=== PATIENT | female | born 1945 | race Caucasian/White ===

== ENCOUNTER 2020-11-08 21:26 | Inpatient (IN) | payer MEDICARE, OTHER ==
[~2020-11-08] VITALS: Ht 165.1 cm; Wt 79.8 kg
[2020-11-08] MEDS ORDERED: AMLO-212 PO (21:51)
[2020-11-08] MEDS ORDERED: OLAN10TA3 PO (21:51)
[2020-11-08] MEDS ORDERED: SOTA80TA PO (21:51)
[2020-11-08] MEDS ORDERED: PANT40TA49 PO (21:51)
[2020-11-08] MEDS ORDERED: MAGN296S70 PO (21:51)
[2020-11-08] MEDS ORDERED: LACT1CAP69 PO (21:51)
[2020-11-08] MEDS ORDERED: ATOR10TA PO (21:51)
[2020-11-08] MEDS ORDERED: ASPI81TA31 PO (21:51)
[2020-11-08] MEDS ORDERED: LEVO88TA2 PO (21:51)
[2020-11-08] MEDS ORDERED: ACET-2154 PO (21:51)
[2020-11-08] MEDS ORDERED: NITR100C11 PO (21:51)
[2020-11-08] MEDS ORDERED: HYDR25TA4 PO (21:51)
[2020-11-08] MEDS ORDERED: OSPE60TA2 PO (21:51)
[2020-11-08] MEDS ORDERED: MIRA50TA PO (21:51)
[2020-11-08] MEDS ORDERED: OXCA300T15 PO ×2 (21:51)
[2020-11-08] MEDS ORDERED: LOSA100T31 PO (21:51)
[2020-11-08] MEDS ORDERED: BUPR-319 PO (21:51)
[2020-11-08] MEDS ORDERED: CALC-1210 PO (21:51)
[2020-11-08] MEDS ORDERED: LINA145C PO (21:51)
[2020-11-08] MEDS ORDERED: ALBU0.63 IH (21:51)
[2020-11-08] MEDS ORDERED: MULT1TAB22 PO (21:51)
[2020-11-08] MEDS ORDERED: HYDR-4077 PO (21:51)
[2020-11-08] MEDS ORDERED: ACYC400T19 PO (21:51)
[2020-11-08] MEDS ORDERED: cholecalciferol PO (21:51)
[2020-11-08] MEDS ORDERED: MELA3TAB41 PO (21:51)
[2020-11-08 22:25] LABS: BASOPHILS # (AUTO) 0.1 K/uL (0.0-8.0); EOSINOPHILS # (AUTO) 0.1 K/uL (0.0-0.7); EOSINOPHILS % (AUTO) 1.2 % (0.0-7.0); HEMATOCRIT 38.1 % (31.2-41.9); HEMOGLOBIN 13.1 g/dL (10.9-14.3); LYMPHOCYTES # (AUTO) 1.9 K/uL (20.0-40.0); LYMPHOCYTES % (AUTO) 17.6 % (20.5-51.5); MEAN CORPUSCULAR HEMOGLOBIN 31.8 uug (24.7-32.8); MEAN CORPUSCULAR HGB CONC 34 g/dL (32.3-35.6); MEAN CORPUSCULAR VOLUME 92.7 fL (75.5-95.3); MONOCYTES # (AUTO) 0.7 K/uL (2.0-10.0); MONOCYTES % (AUTO) 6.4 % (0.0-11.0); NEUTROPHILS # (AUTO) 7.8 K/uL (1.8-8.9); NEUTROPHILS % (AUTO) 73.8 % (38.5-71.5); PLATELET COUNT (AUTO) 265 K/uL (179-408); RED BLOOD CELL COUNT(AUTO) 4.11 MIL/uL (3.63-4.92); WHITE BLOOD COUNT (AUTO) 10.6 K/uL (3.8-11.8)
[2020-11-08 22:38] LABS: ALANINE AMINOTRANSFERASE 28 U/L (14-59); ALKALINE PHOSPHATASE 82 U/L (50-136); ASPARTATE AMINOTRANSFERASE 18 U/L (15-37); BILIRUBIN,DIRECT 0.1 mg/dL (0.0-0.2); BILIRUBIN,TOTAL 0.3 mg/dL (0.2-1.0); CARBON DIOXIDE 29 mmol/L (21-32); CHLORIDE 98 mmol/L (98-107); CREATINE KINASE, TOTAL 97 U/L (26-192); CREATININE 0.9 mg/dL (0.6-1.3); GLUCOSE 137 mg/dL (74-106); POTASSIUM 3.5 mmol/L (3.5-5.1); TOTAL PROTEIN, SERUM 6.4 g/dL (6.4-8.2); UREA NITROGEN, BLOOD 15 mg/dL (7-18)
[2020-11-08 22:39] LABS: ACETAMINOPHEN < 2.0 ug/mL (10-30)
[2020-11-08 22:41] LABS: ETHANOL < 3 MG/DL (0-0)
[2020-11-08 22:46] LABS: THYROID STIMULATING HORMONE 1.215 mIU/mL (0.358-3.740)
--- NOTE | 2020-11-08 22:57 | NUR ---
PATIENT WAS MEDICALLY CLEARED BY DR HARRIS.
[2020-11-09 00:30] VITALS: BP 155/67
--- NOTE | 2020-11-09 00:30 | NUR ---
AT APPROX 0005, ADMITTED PATIENT TO [facility] ON A 5150 HOLD FOR GD. FACE TO FACE ASSESSMENT WAS DONE PATIENT REFLEX WHAT IS WRITTEN ON THE HOLD. HIS ADVISEMENT WAS GIVEN WELL HER BOOKLET FOR PATIENT RIGHTS WHEN IN MENTAL HEALTH FACILITY. WILL CONTINUE WITH Q15 MIN CHECK
--- NOTE | 2020-11-09 00:30 | NUR ---
Received patient in the [facility] from the ED. Patient asleep but easily aroused by light stimuli. Patient placed on continued 5150 hold from transfer of facilities for danger to self, lacking ability to seek treatment on their own. Patient verbalized feelings of hopelessness and refusing to eat or drink. Unable to assess patients gait, refused to walk to the bathroom and in place would prefer a brief stating "I am incontinent". Q15 min safety checks in place, bed alarm on, and will continue to monitor for safety.
[2020-11-09] MEDS ORDERED: ACETAMINOPHEN 325 MG TABLET PO PRN (01:00)
[2020-11-09] MEDS ORDERED: MAG HYDROX/AL HYDROX/SIMETH 30 ML LIQUID UDC PO PRN (01:00)
[2020-11-09] MEDS ORDERED: TEMAZEPAM 7.5 MG CAPSULE PO PRN (01:00)
[2020-11-09 07:30] VITALS: BP 150/58
--- NOTE | 2020-11-09 11:51 | NUR ---
FAWN Initial Discharge Plan: Patient currently resides at home [address], [place] [address] ([phone]) lives with her Michael ([phone]). Patient would like to return home once stable for discharge. FAWN left a voicemail for Michael to discuss treatment and discharge plan. FAWN will continue to work with patient, family, and MD to ensure a safe and proper discharge plan.
--- NOTE | 2020-11-09 11:51 | NUR ---
FAWN Family Contact: FAWN left a voicemail for patient's Michael ([phone]) to discuss treatment and discharge plan. Waiting for a return call.
--- NOTE | 2020-11-09 11:53 | NUR ---
Firearms Report: Agricultural Researcher completed and submitted a [employer] firearms report for 5150 danger to self certifications. A copy of report has been placed in patient chart.
[2020-11-09] MEDS: hydrALAZINE HCL 50 MG TABLET PO SCH ×3 (12:33→20:15)
[2020-11-09] MEDS: OXCARBAZEPINE 150 MG TABLET PO SCH ×2 (12:34→16:15)
[2020-11-09] MEDS: LORAZEPAM 0.5 MG TABLET PO PRN (12:43)
[2020-11-09] MEDS: CALCIUM CARB/VITAMIN D 600-400 MG TABLET PO SCH (16:15)
[2020-11-09] MEDS: ACYCLOVIR 400 MG TABLET PO SCH (16:16)
[2020-11-09 16:27] VITALS: BP 142/61
--- NOTE | 2020-11-09 17:48 | NUR ---
patient stayed in her room all day, compliant with adls, tolerated meals, denied suicidal thoughts or ideations
[2020-11-09] MEDS: NITROFURANTOIN/NITROFURAN MAC 100 MG CAPSULE PO SCH (20:13)
[2020-11-09] MEDS: OLANZAPINE 5 MG TABLET PO SCH (20:17)
[2020-11-09] MEDS: SOTALOL HCL 80 MG TABLET PO SCH (20:17)
[2020-11-09] MEDS: ATORVASTATIN 10 MG TABLET PO SCH (20:18)
[2020-11-09] MEDS: AMLODIPINE 5 MG TABLET PO SCH (20:19)
[2020-11-09 20:26] VITALS: BP 153/72
[2020-11-09] MEDS ORDERED: Mirabegron (Myrbetriq) 50 MG) PO SCH (21:00)
[2020-11-09] MEDS ORDERED: OXCARBAZEPINE 150 MG TABLET PO SCH (21:00)
--- NOTE | 2020-11-09 21:48 | NUR ---
Received patient in the hallway, cooperative with care, interacts with staff and peers. Semi fair insight and fair judgment. Patient will remain in a psych facility for further evaluation and treatment.
[2020-11-10] MEDS: PANTOPRAZOLE SODIUM 40 MG TABLET.DR PO SCH (06:04)
[2020-11-10] MEDS: LEVOTHYROXINE SODIUM 88 MCG TABLET PO SCH (06:05)
[2020-11-10 07:30] VITALS: BP 156/65
[2020-11-10] MEDS ORDERED: LEVOTHYROXINE SODIUM 88 MCG TABLET PO SCH (07:30)
[2020-11-10] MEDS: LOSARTAN POTASSIUM 50 MG TABLET PO SCH (09:03)
[2020-11-10] MEDS: MULTIVITAMINS,THERAPEUTIC TABLET PO SCH (09:04)
[2020-11-10] MEDS: CHOLECALCIFEROL 1,000 UNIT TABLET PO SCH (09:04)
[2020-11-10] MEDS: OXCARBAZEPINE 150 MG TABLET PO SCH ×3 (09:04→20:36)
[2020-11-10] MEDS: NITROFURANTOIN/NITROFURAN MAC 100 MG CAPSULE PO SCH ×2 (09:04→20:32)
[2020-11-10] MEDS: SOTALOL HCL 80 MG TABLET PO SCH ×2 (09:05→20:31)
[2020-11-10] MEDS: ASPIRIN 81 MG TAB.CHEW PO SCH (09:05)
[2020-11-10] MEDS: CALCIUM CARB/VITAMIN D 600-400 MG TABLET PO SCH ×2 (09:06→17:25)
[2020-11-10] MEDS: HYDROCHLOROTHIAZIDE 25 MG TABLET PO SCH (09:06)
[2020-11-10] MEDS: ACYCLOVIR 400 MG TABLET PO SCH ×2 (09:06→17:26)
[2020-11-10] MEDS: hydrALAZINE HCL 50 MG TABLET PO SCH ×4 (09:07→20:29)
--- NOTE | 2020-11-10 09:20 | NUR ---
FAWN Family Contact: SW left a voicemail for patient's son, Eliud ([phone]) to discuss treatment and discharge plan. Waiting for a return call.
--- NOTE | 2020-11-10 09:22 | NUR ---
FAWN Family Contact: FAWN called patient's Michael ([phone]) to discuss treatment and discharge plan unable to reach two times.
--- NOTE | 2020-11-10 09:59 | NUR ---
FAWN Family Contact: FAWN spoke with patient's Michael ([phone]) and discussed treatment and discharge plan. Michael stated he will black pickler the patient at discharge.
--- NOTE | 2020-11-10 10:35 | NUR ---
FAWN Family Contact: FAWN spoke with patient's son, Eliud ([phone]) and discussed treatment and discharge plan.
[2020-11-10 16:00] VITALS: BP 150/64
[2020-11-10 20:22] VITALS: BP 148/76
[2020-11-10] MEDS: ATORVASTATIN 10 MG TABLET PO SCH (20:32)
[2020-11-10] MEDS: AMLODIPINE 5 MG TABLET PO SCH (20:33)
[2020-11-10] MEDS: OLANZAPINE 5 MG TABLET PO SCH (20:36)
[2020-11-10] MEDS: OXYBUTYNIN XL 5 MG TABSR PO SCH (20:37)
--- NOTE | 2020-11-10 21:49 | NUR ---
RECEIVED PATIENT IN THE HALLWAY.CALM AND COMPLIANT WITH HER MEDICATIONS. HOWEVER APPEARS DEPRESSED WITH FLAT AFFECT BUT DENIES SUICIDAL IDEATION. SHE ADMITTED TO FEELING DEPRESSED AND NOT WANTING TO EAT BUT COULD NOT SAY WHAT BROUGHT THAT ON. SHE CONTRACTED FOR SAFETY.LIBERAL FLUIDS ENCOURAGED FOR UTI.VISUAL CHECKS MADE ON HER FOR SAFETY. WILL CONTINUE TO MONITOR.
[2020-11-11] MEDS: LEVOTHYROXINE SODIUM 88 MCG TABLET PO SCH (06:35)
[2020-11-11] MEDS: PANTOPRAZOLE SODIUM 40 MG TABLET.DR PO SCH (06:35)
--- NOTE | 2020-11-11 06:55 | NUR ---
SLEPT FOR 8HOURS. REPOSITIONED NEEDED AND COMFORTABLE IN BED.
[2020-11-11 07:30] VITALS: BP 141/60
[2020-11-11] MEDS: OXCARBAZEPINE 150 MG TABLET PO SCH ×3 (08:10→20:03)
[2020-11-11] MEDS: CHOLECALCIFEROL 1,000 UNIT TABLET PO SCH (08:10)
[2020-11-11] MEDS: CALCIUM CARB/VITAMIN D 600-400 MG TABLET PO SCH ×2 (08:11→16:53)
[2020-11-11] MEDS: SOTALOL HCL 80 MG TABLET PO SCH ×2 (08:11→20:02)
[2020-11-11] MEDS: NITROFURANTOIN/NITROFURAN MAC 100 MG CAPSULE PO SCH ×2 (08:12→20:04)
[2020-11-11] MEDS: HYDROCHLOROTHIAZIDE 25 MG TABLET PO SCH (08:12)
[2020-11-11] MEDS: LOSARTAN POTASSIUM 50 MG TABLET PO SCH (08:12)
[2020-11-11] MEDS: hydrALAZINE HCL 50 MG TABLET PO SCH ×4 (08:12→20:03)
[2020-11-11] MEDS: ASPIRIN 81 MG TAB.CHEW PO SCH (08:12)
[2020-11-11] MEDS: ACYCLOVIR 400 MG TABLET PO SCH (08:14)
[2020-11-11] MEDS: MULTIVITAMINS,THERAPEUTIC TABLET PO SCH (08:15)
--- NOTE | 2020-11-11 10:41 | NUR ---
FAWN Individual Intervention: SW met with patient for brief individual counseling to address patient's presenting problem of neglecting self-care. Patient presents with a flat affect. Patient presents withdrawn and guarded. Patient is not engaging in a meaningful conversation. SW encouraged patient to express her needs or concerns, however patient blankly stared at this database report writer. Patient however has been engaging in self-care such as eating, drinking and bathing. SW will continue to remain available for the patient for ongoing continuous support.
[2020-11-11 16:42] VITALS: BP 151/69
[2020-11-11] MEDS: ACYCLOVIR 200 MG CAPSULE PO SCH (16:52)
[2020-11-11] MEDS: OXYBUTYNIN XL 5 MG TABSR PO SCH (20:04)
[2020-11-11] MEDS: ATORVASTATIN 10 MG TABLET PO SCH (20:04)
[2020-11-11] MEDS: AMLODIPINE 5 MG TABLET PO SCH (20:04)
[2020-11-11 20:07] VITALS: BP 142/73
[2020-11-11] MEDS ORDERED: OLANZAPINE 5 MG TABLET PO SCH (21:00)
--- NOTE | 2020-11-12 05:06 | NUR ---
Pt asleep with no s/sx of distress; no c/o pain. Safety precautions in place. Frequent rounds done during the shift.
[2020-11-12] MEDS: LEVOTHYROXINE SODIUM 88 MCG TABLET PO SCH (06:12)
[2020-11-12] MEDS: PANTOPRAZOLE SODIUM 40 MG TABLET.DR PO SCH (06:12)
--- NOTE | 2020-11-12 06:12 | NUR ---
Refused 6AM meds despite encouragement
[2020-11-12 07:30] VITALS: BP 149/60
[2020-11-12] MEDS: OXCARBAZEPINE 150 MG TABLET PO SCH ×4 (08:00→20:19)
[2020-11-12] MEDS: ACYCLOVIR 200 MG CAPSULE PO SCH ×2 (08:39→09:00)
[2020-11-12] MEDS: ASPIRIN 81 MG TAB.CHEW PO SCH ×2 (08:40→09:00)
[2020-11-12] MEDS: LOSARTAN POTASSIUM 50 MG TABLET PO SCH ×2 (08:40→09:00)
[2020-11-12] MEDS: hydrALAZINE HCL 50 MG TABLET PO SCH ×5 (08:41→20:22)
[2020-11-12] MEDS: SOTALOL HCL 80 MG TABLET PO SCH ×3 (08:41→20:20)
[2020-11-12] MEDS: MULTIVITAMINS,THERAPEUTIC TABLET PO SCH ×2 (08:41→09:00)
[2020-11-12 08:42] LABS: BASOPHILS # (AUTO) 0.1 K/uL (0.0-8.0); BASOPHILS % (AUTO) 0.8 % (0.0-2.0); EOSINOPHILS # (AUTO) 0.2 K/uL (0.0-0.7); EOSINOPHILS % (AUTO) 1.8 % (0.0-7.0); HEMATOCRIT 40.6 % (31.2-41.9); LYMPHOCYTES # (AUTO) 2.7 K/uL (20.0-40.0); MEAN CORPUSCULAR HEMOGLOBIN 32.1 uug (24.7-32.8); MEAN CORPUSCULAR HGB CONC 34 g/dL (32.3-35.6); MEAN CORPUSCULAR VOLUME 93.5 fL (75.5-95.3); MONOCYTES # (AUTO) 0.9 K/uL (2.0-10.0); MONOCYTES % (AUTO) 8.6 % (0.0-11.0); NEUTROPHILS % (AUTO) 63.8 % (38.5-71.5); PLATELET COUNT (AUTO) 336 K/uL (179-408); RED BLOOD CELL COUNT(AUTO) 4.35 MIL/uL (3.63-4.92)
[2020-11-12] MEDS: CHOLECALCIFEROL 1,000 UNIT TABLET PO SCH ×2 (08:42→09:00)
[2020-11-12] MEDS: CALCIUM CARB/VITAMIN D 600-400 MG TABLET PO SCH ×3 (08:42→17:40)
[2020-11-12] MEDS: HYDROCHLOROTHIAZIDE 25 MG TABLET PO SCH ×2 (08:44→09:00)
[2020-11-12 08:45] LABS: CREATININE 0.8 mg/dL (0.6-1.3); POTASSIUM 3.2 mmol/L (3.5-5.1)
[2020-11-12] MEDS ORDERED: POTASSIUM CHLORIDE 20 MEQ TAB.PRT.SR PO SCH (10:15)
--- NOTE | 2020-11-12 11:38 | NUR ---
Patient refuse 9am and 1pm medicines, despite of encouragement and education. MD Haskins aware. Patient no agitation noted. Patient took potassium one time for hypokalemia. will continue monitor
[2020-11-12 16:00] VITALS: BP 162/70
[2020-11-12 20:15] VITALS: BP 157/77
[2020-11-12] MEDS: ATORVASTATIN 10 MG TABLET PO SCH (20:18)
[2020-11-12] MEDS: AMLODIPINE 5 MG TABLET PO SCH (20:20)
[2020-11-12] MEDS: OXYBUTYNIN XL 5 MG TABSR PO SCH (20:21)
[2020-11-12] MEDS: OLANZAPINE 5 MG TABLET PO SCH (20:21)
[2020-11-12] MEDS: LORAZEPAM 0.5 MG TABLET PO PRN (20:29)
--- NOTE | 2020-11-13 06:00 | NUR ---
Received patient in the Kisha chair last night. Awake and pleasant, but confused. VS were stable. When mortgage loan underwriter asked patient if she will take her medication, patient stated that she is " Unable to swallow pills ". She was medication noncompliant with the day shift . Nursing Coordinator offered to crush the medication and at that point patient decided to take the pills whole with water, no swallowing difficulty noted. This patient was taken to her bed and was very weak when standing and took max assistance to get her in it. Due to her confusion, it was difficult to engage in meaningful conversation but patient did however deny SI. Continuing to monitor for safety , encourage compliance and to assist with ADLs as needed. Sleep hours were7.15
[2020-11-13] MEDS: LEVOTHYROXINE SODIUM 88 MCG TABLET PO SCH (06:12)
[2020-11-13] MEDS: PANTOPRAZOLE SODIUM 40 MG TABLET.DR PO SCH (06:12)
[2020-11-13 07:30] VITALS: BP 149/67
[2020-11-13] MEDS: ASPIRIN 81 MG TAB.CHEW PO SCH (08:56)
[2020-11-13] MEDS: OXCARBAZEPINE 150 MG TABLET PO SCH ×3 (08:56→20:01)
[2020-11-13] MEDS: LOSARTAN POTASSIUM 50 MG TABLET PO SCH (08:57)
[2020-11-13] MEDS: SOTALOL HCL 80 MG TABLET PO SCH ×2 (08:57→20:02)
[2020-11-13] MEDS: HYDROCHLOROTHIAZIDE 25 MG TABLET PO SCH (08:58)
[2020-11-13] MEDS: hydrALAZINE HCL 50 MG TABLET PO SCH ×4 (08:58→20:05)
[2020-11-13] MEDS: MULTIVITAMINS,THERAPEUTIC TABLET PO SCH (08:59)
[2020-11-13] MEDS: CALCIUM CARB/VITAMIN D 600-400 MG TABLET PO SCH ×2 (08:59→16:26)
[2020-11-13] MEDS: CHOLECALCIFEROL 1,000 UNIT TABLET PO SCH (08:59)
[2020-11-13] MEDS: MAGNESIUM HYDROXIDE 30 ML LIQUID UDC PO PRN (10:10)
[2020-11-13] MEDS ORDERED: MAGNESIUM CITRATE 296 ML BOTTLE PO ONE (12:45)
[2020-11-13 16:00] VITALS: BP 147/89
[2020-11-13 19:45] VITALS: BP 143/70
[2020-11-13] MEDS: OLANZAPINE 5 MG TABLET PO SCH (20:01)
[2020-11-13] MEDS: AMLODIPINE 5 MG TABLET PO SCH (20:02)
[2020-11-13] MEDS: ATORVASTATIN 10 MG TABLET PO SCH (20:03)
[2020-11-13] MEDS: OXYBUTYNIN XL 5 MG TABSR PO SCH (20:05)
[2020-11-14] MEDS: PANTOPRAZOLE SODIUM 40 MG TABLET.DR PO SCH (06:12)
[2020-11-14] MEDS: LEVOTHYROXINE SODIUM 88 MCG TABLET PO SCH (06:15)
--- NOTE | 2020-11-14 06:27 | NUR ---
GPS: Remain calm and cooperative. no acute distress noted. compliant with am po meds. assisted with adl's. good krista care provided. slept 7 hrs through the night. resting in bed comfortably.
[2020-11-14 07:30] VITALS: BP 140/55
[2020-11-14] MEDS: CALCIUM CARB/VITAMIN D 600-400 MG TABLET PO SCH ×2 (09:00→16:22)
[2020-11-14] MEDS: ASPIRIN 81 MG TAB.CHEW PO SCH (09:00)
[2020-11-14] MEDS: MULTIVITAMINS,THERAPEUTIC TABLET PO SCH (09:00)
[2020-11-14] MEDS: CHOLECALCIFEROL 1,000 UNIT TABLET PO SCH (09:00)
[2020-11-14] MEDS: SOTALOL HCL 80 MG TABLET PO SCH ×2 (09:01→21:01)
[2020-11-14] MEDS: OXCARBAZEPINE 150 MG TABLET PO SCH ×3 (09:01→21:00)
[2020-11-14] MEDS: HYDROCHLOROTHIAZIDE 25 MG TABLET PO SCH (09:01)
[2020-11-14] MEDS: hydrALAZINE HCL 50 MG TABLET PO SCH ×4 (09:02→21:02)
[2020-11-14] MEDS: LOSARTAN POTASSIUM 50 MG TABLET PO SCH (09:02)
--- NOTE | 2020-11-14 11:36 | NUR ---
FAWN SNF Referral: FAWN faxed patient's packet for review at [facility] ) ) attention to [facility] [employer] [facility]. Addendum: 11/14/20 at 1232 by ADELINA OSPINA Patient is accepted at Facility.
[2020-11-14 15:48] VITALS: BP 134/56
[2020-11-14 19:40] VITALS: BP 117/54
[2020-11-14] MEDS: DOCUSATE SODIUM 100 MG CAPSULE PO SCH (21:00)
[2020-11-14] MEDS: OLANZAPINE 5 MG TABLET PO SCH (21:01)
[2020-11-14] MEDS: ATORVASTATIN 10 MG TABLET PO SCH (21:01)
[2020-11-14] MEDS: AMLODIPINE 5 MG TABLET PO SCH (21:02)
[2020-11-14] MEDS: OXYBUTYNIN XL 5 MG TABSR PO SCH (21:04)
[2020-11-15] MEDS: PANTOPRAZOLE SODIUM 40 MG TABLET.DR PO SCH (06:02)
[2020-11-15] MEDS: LEVOTHYROXINE SODIUM 88 MCG TABLET PO SCH (06:03)
[2020-11-15 07:30] VITALS: BP 128/57
[2020-11-15] MEDS: CALCIUM CARB/VITAMIN D 600-400 MG TABLET PO SCH ×3 (09:00→17:29)
[2020-11-15] MEDS: CHOLECALCIFEROL 1,000 UNIT TABLET PO SCH (09:15)
[2020-11-15] MEDS: OXCARBAZEPINE 300 MG TABLET PO SCH ×3 (09:15→20:48)
[2020-11-15] MEDS: DOCUSATE SODIUM 100 MG CAPSULE PO SCH ×2 (09:15→20:44)
[2020-11-15] MEDS: ASPIRIN 81 MG TAB.CHEW PO SCH (09:15)
[2020-11-15] MEDS: hydrALAZINE HCL 50 MG TABLET PO SCH ×4 (09:16→20:46)
[2020-11-15] MEDS: MULTIVITAMINS,THERAPEUTIC TABLET PO SCH (09:16)
[2020-11-15] MEDS: SOTALOL HCL 80 MG TABLET PO SCH ×2 (09:16→20:45)
[2020-11-15] MEDS: LOSARTAN POTASSIUM 50 MG TABLET PO SCH (09:17)
[2020-11-15] MEDS: HYDROCHLOROTHIAZIDE 25 MG TABLET PO SCH (09:17)
[2020-11-15 15:27] VITALS: BP 135/63
[2020-11-15 20:09] VITALS: BP 132/58
[2020-11-15] MEDS: ATORVASTATIN 10 MG TABLET PO SCH (20:44)
[2020-11-15] MEDS: OLANZAPINE 5 MG TABLET PO SCH (20:44)
[2020-11-15] MEDS: AMLODIPINE 5 MG TABLET PO SCH (20:45)
[2020-11-15] MEDS: OXYBUTYNIN XL 5 MG TABSR PO SCH (20:48)
--- NOTE | 2020-11-16 05:57 | NUR ---
GPS: Pt.slept for 7.30 last night. Needs attended and anticipated. Denies wanting to hurt self. Re-assured prn. Safety checks done Q15 minutes as scheduled.
[2020-11-16] MEDS: PANTOPRAZOLE SODIUM 40 MG TABLET.DR PO SCH (06:13)
[2020-11-16] MEDS: LEVOTHYROXINE SODIUM 88 MCG TABLET PO SCH (06:13)
[2020-11-16 07:30] VITALS: BP 122/44
--- NOTE | 2020-11-16 07:30 | NUR ---
Received report from NASIMA Nguyen. All questions, comments, and concerns were addressed. Received patient asleep in her assigned bed. Bed is in low and locked position with bed alarm on.
[2020-11-16] MEDS: OXCARBAZEPINE 300 MG TABLET PO SCH ×3 (08:45→20:09)
[2020-11-16] MEDS: CHOLECALCIFEROL 1,000 UNIT TABLET PO SCH (08:45)
[2020-11-16] MEDS: ASPIRIN 81 MG TAB.CHEW PO SCH (08:45)
[2020-11-16] MEDS: MULTIVITAMINS,THERAPEUTIC TABLET PO SCH (08:46)
[2020-11-16] MEDS: DOCUSATE SODIUM 100 MG CAPSULE PO SCH ×2 (08:46→20:09)
[2020-11-16] MEDS: SOTALOL HCL 80 MG TABLET PO SCH ×2 (08:46→20:10)
[2020-11-16] MEDS: CALCIUM CARB/VITAMIN D 600-400 MG TABLET PO SCH ×2 (08:46→16:42)
[2020-11-16] MEDS: HYDROCHLOROTHIAZIDE 25 MG TABLET PO SCH (08:47)
[2020-11-16] MEDS: LOSARTAN POTASSIUM 50 MG TABLET PO SCH (08:47)
[2020-11-16] MEDS: hydrALAZINE HCL 50 MG TABLET PO SCH ×4 (08:47→20:11)
--- NOTE | 2020-11-16 13:19 | NUR ---
FAWN Family Contact: FAWN spoke with patient's Michael ([phone]) and discussed updated treatment and discharge plan. FAWN informed that the psychiatrist Dr. Haskins is recommending a SNF for the patient upon discharge, and patient has been accepted at [facility]. FAWN provided Michael with all the necessary information. Michael seemed somewhat dismissive of the patient's current status however he agreed to SNF placement.
[2020-11-16 16:00] VITALS: BP 137/62
--- NOTE | 2020-11-16 16:08 | NUR ---
patient is alert and oriented. she is anxious, but is cooperative and redirectable with this advertising copywriter. patient denies SI/HI, denies AH/VH. she is adherent with prescribed medication, no adverse reaction noted. patient requires full assistance with care.
[2020-11-16] MEDS: AMLODIPINE 5 MG TABLET PO SCH (20:09)
[2020-11-16] MEDS: ATORVASTATIN 10 MG TABLET PO SCH (20:09)
[2020-11-16] MEDS: MEMANTINE HCL 5 MG TABLET PO SCH (20:09)
[2020-11-16] MEDS: OLANZAPINE 5 MG TABLET PO SCH (20:09)
[2020-11-16] MEDS: OXYBUTYNIN XL 5 MG TABSR PO SCH (20:10)
--- NOTE | 2020-11-16 20:25 | NUR ---
Received patient from U, transferred to this unit as MHU overflow. Patient AAOx2-3. In no acute distress. Denies any pain or SOB. Denies any SI/HI. Needs assessed and attended to. Safety measure initiated. Continue to monitor.
--- NOTE | 2020-11-16 20:27 | NUR ---
GPS: Pt.was transferred to [facility]. Left in stable condition with all her belongings. Report given to Casandra Dimas All bedtime meds.given. VSS.
[2020-11-16 21:04] VITALS: BP 145/62
[2020-11-17 04:00] VITALS: BP 150/57
--- NOTE | 2020-11-17 06:13 | NUR ---
Patient slept a total of 6.5 hours last night.
[2020-11-17] MEDS: PANTOPRAZOLE SODIUM 40 MG TABLET.DR PO SCH (06:20)
[2020-11-17] MEDS: LEVOTHYROXINE SODIUM 88 MCG TABLET PO SCH (07:18)
[2020-11-17 07:30] VITALS: BP 137/53
[2020-11-17] MEDS: HYDROCHLOROTHIAZIDE 25 MG TABLET PO SCH (08:02)
[2020-11-17] MEDS: DOCUSATE SODIUM 100 MG CAPSULE PO SCH ×2 (08:02→20:38)
[2020-11-17] MEDS: CALCIUM CARB/VITAMIN D 600-400 MG TABLET PO SCH ×2 (08:02→16:40)
[2020-11-17] MEDS: ASPIRIN 81 MG TAB.CHEW PO SCH (08:02)
[2020-11-17] MEDS: MULTIVITAMINS,THERAPEUTIC TABLET PO SCH (08:03)
[2020-11-17] MEDS: LOSARTAN POTASSIUM 50 MG TABLET PO SCH (08:03)
[2020-11-17] MEDS: CHOLECALCIFEROL 1,000 UNIT TABLET PO SCH (08:03)
[2020-11-17] MEDS: MEMANTINE HCL 5 MG TABLET PO SCH ×2 (08:03→20:50)
[2020-11-17] MEDS: hydrALAZINE HCL 50 MG TABLET PO SCH ×4 (08:03→20:40)
[2020-11-17] MEDS: OXCARBAZEPINE 300 MG TABLET PO SCH ×3 (08:58→20:38)
[2020-11-17] MEDS: SOTALOL HCL 80 MG TABLET PO SCH ×2 (08:58→20:39)
--- NOTE | 2020-11-17 09:50 | NUR ---
pt went to u via wheelchair with the veda najera activity
[2020-11-17] MEDS: LORAZEPAM 0.5 MG TABLET PO PRN (11:15)
--- NOTE | 2020-11-17 11:15 | NUR ---
pt is anxious ativan 0.5 mg po given per md orders
--- NOTE | 2020-11-17 13:10 | NUR ---
FAWN PC Hearing: Patient had 5250 probable cause hearing today and it was upheld for grave disability.
[2020-11-17 16:00] VITALS: BP 144/65
[2020-11-17 20:00] VITALS: BP 144/60
[2020-11-17] MEDS: ATORVASTATIN 10 MG TABLET PO SCH (20:40)
[2020-11-17] MEDS: OLANZAPINE 5 MG TABLET PO SCH (20:40)
[2020-11-17] MEDS: OXYBUTYNIN XL 5 MG TABSR PO SCH (20:50)
[2020-11-17] MEDS: AMLODIPINE 5 MG TABLET PO SCH (20:51)
[2020-11-18] VITALS: BP 132/59
[2020-11-18 04:00] VITALS: BP 156/67
[2020-11-18] MEDS: PANTOPRAZOLE SODIUM 40 MG TABLET.DR PO SCH (06:14)
[2020-11-18] MEDS: LEVOTHYROXINE SODIUM 88 MCG TABLET PO SCH (06:14)
--- NOTE | 2020-11-18 07:00 | NUR ---
Received patient in the bed, cooperative with care, vs are stable sitter at bed side
[2020-11-18 08:00] VITALS: BP 133/65
[2020-11-18] MEDS: DOCUSATE SODIUM 100 MG CAPSULE PO SCH ×2 (08:02→20:39)
[2020-11-18] MEDS: CALCIUM CARB/VITAMIN D 600-400 MG TABLET PO SCH ×2 (08:02→18:07)
[2020-11-18] MEDS: MEMANTINE HCL 5 MG TABLET PO SCH ×2 (08:02→20:39)
[2020-11-18] MEDS: LOSARTAN POTASSIUM 50 MG TABLET PO SCH (08:02)
[2020-11-18] MEDS: ASPIRIN 81 MG TAB.CHEW PO SCH (08:02)
[2020-11-18] MEDS: HYDROCHLOROTHIAZIDE 25 MG TABLET PO SCH (08:03)
[2020-11-18] MEDS: SOTALOL HCL 80 MG TABLET PO SCH ×2 (08:03→20:38)
[2020-11-18] MEDS: CHOLECALCIFEROL 1,000 UNIT TABLET PO SCH (08:03)
[2020-11-18] MEDS: MULTIVITAMINS,THERAPEUTIC TABLET PO SCH (08:03)
[2020-11-18] MEDS: OXCARBAZEPINE 300 MG TABLET PO SCH ×3 (08:03→20:39)
[2020-11-18] MEDS: hydrALAZINE HCL 50 MG TABLET PO SCH ×4 (08:03→20:37)
--- NOTE | 2020-11-18 09:40 | NUR ---
FAWN Family Contact: FAWN called and left a voicemail for patients , Michael ([phone]) and informed of the discharge set today to [facility].
[2020-11-18 15:52] VITALS: BP 155/70
--- NOTE | 2020-11-18 15:59 | NUR ---
transfer the pt to u via wheel chair in stable condition
--- NOTE | 2020-11-18 16:07 | NUR ---
Gps/Helicopter Pilot- Received from 3rd floor via wheel chair, in no sign of any distress, cooperative, flat affect , answers to simple questions and command . In no sign of any distress, alert, oriented x 3 , denies any discomfort at this time. Oriented to unit settings. b/p 173/77-tempt. 98.1, HR 67, resp. 18, 98%
[2020-11-18 20:21] VITALS: BP 163/71
[2020-11-18] MEDS: OLANZAPINE 5 MG TABLET PO SCH (20:37)
[2020-11-18] MEDS: OXYBUTYNIN XL 5 MG TABSR PO SCH (20:38)
[2020-11-18] MEDS: ATORVASTATIN 10 MG TABLET PO SCH (20:39)
[2020-11-18] MEDS: AMLODIPINE 5 MG TABLET PO SCH (20:39)
--- NOTE | 2020-11-19 06:12 | NUR ---
Patient received AOx2 in hallway sitting in her wheelchair. Patient was pleasant but quiet with this information writer. Denies SI, HI, AH. or VH. Tolerated all given medications well. Slept a total of 7.30 hours last night. Safety precautions kept in place throughout the shift. No other issues or concerns at this time, will endorse to day shift.
[2020-11-19] MEDS: PANTOPRAZOLE SODIUM 40 MG TABLET.DR PO SCH (06:34)
[2020-11-19] MEDS: LEVOTHYROXINE SODIUM 88 MCG TABLET PO SCH (06:34)
[2020-11-19 06:44] LABS: BASOPHILS # (AUTO) 0.1 K/uL (0.0-8.0); BASOPHILS % (AUTO) 1.2 % (0.0-2.0); EOSINOPHILS # (AUTO) 0.3 K/uL (0.0-0.7); EOSINOPHILS % (AUTO) 2.8 % (0.0-7.0); HEMATOCRIT 36.2 % (31.2-41.9); HEMOGLOBIN 12.6 g/dL (10.9-14.3); LYMPHOCYTES % (AUTO) 29.2 % (20.5-51.5); MEAN CORPUSCULAR HEMOGLOBIN 31.9 uug (24.7-32.8); MEAN CORPUSCULAR HGB CONC 35 g/dL (32.3-35.6); MONOCYTES # (AUTO) 0.8 K/uL (2.0-10.0); MONOCYTES % (AUTO) 7.5 % (0.0-11.0); NEUTROPHILS # (AUTO) 6.1 K/uL (1.8-8.9); NEUTROPHILS % (AUTO) 59.3 % (38.5-71.5); PLATELET COUNT (AUTO) 335 K/uL (179-408); RED BLOOD CELL COUNT(AUTO) 3.94 MIL/uL (3.63-4.92); WHITE BLOOD COUNT (AUTO) 10.3 K/uL (3.8-11.8)
[2020-11-19 06:51] LABS: CREATININE 0.6 mg/dL (0.6-1.3); POTASSIUM 3.2 mmol/L (3.5-5.1)
[2020-11-19 07:30] VITALS: BP 147/79
--- NOTE | 2020-11-19 07:30 | NUR ---
received report from HOLLIS Reyes. All questions, comments, and concerns were addressed. Received patient awake, alert and oriented in her assigned room in bed. bed alarm on. bed in low and locked position.
[2020-11-19] MEDS ORDERED: POTASSIUM CHLORIDE 20 MEQ TAB.PRT.SR PO ONE (08:30)
[2020-11-19] MEDS: ASPIRIN 81 MG TAB.CHEW PO SCH (09:14)
[2020-11-19] MEDS: CALCIUM CARB/VITAMIN D 600-400 MG TABLET PO SCH ×2 (09:14→16:27)
[2020-11-19] MEDS: MULTIVITAMINS,THERAPEUTIC TABLET PO SCH (09:14)
[2020-11-19] MEDS: HYDROCHLOROTHIAZIDE 25 MG TABLET PO SCH (09:14)
[2020-11-19] MEDS: LOSARTAN POTASSIUM 50 MG TABLET PO SCH (09:15)
[2020-11-19] MEDS: DOCUSATE SODIUM 100 MG CAPSULE PO SCH ×2 (09:15→20:04)
[2020-11-19] MEDS: MEMANTINE HCL 5 MG TABLET PO SCH ×2 (09:15→20:07)
[2020-11-19] MEDS: SOTALOL HCL 80 MG TABLET PO SCH ×2 (09:15→20:06)
[2020-11-19] MEDS: CHOLECALCIFEROL 1,000 UNIT TABLET PO SCH (09:16)
[2020-11-19] MEDS: hydrALAZINE HCL 50 MG TABLET PO SCH ×4 (09:16→20:06)
[2020-11-19] MEDS: OXCARBAZEPINE 300 MG TABLET PO SCH ×3 (09:16→20:07)
[2020-11-19] MEDS ORDERED: IV NS 1000 ML 1,000 ML IV ONE (10:15)
[2020-11-19 15:37] VITALS: BP 143/57
--- NOTE | 2020-11-19 17:55 | NUR ---
patient is alert and oriented. she is withdrawn, guarded, and flat, but is cooperative and redirectable. patient denies SI/HI, denies AH/VH. patient is adherent with medication, no adverse reaction noted. patient requires assistance with ambulation and is unsteady. able to tolerate food and fluids. patient provided with education about impulse control and to communicate needs to staff appropriately. patient encouraged to participate in the unit therapeutic milieu.
--- NOTE | 2020-11-19 17:56 | NUR ---
peripheral IV site inserted in left antecubital area with no adverse event. site is patent, flushed with sterile NS. patient receiving IV fluids as ordered per CLINICAL LABORATORY TECHNICIAN. tolerating well.
[2020-11-19] MEDS: OLANZAPINE 5 MG TABLET PO SCH (20:05)
[2020-11-19] MEDS: OXYBUTYNIN XL 5 MG TABSR PO SCH (20:06)
[2020-11-19] MEDS: ATORVASTATIN 10 MG TABLET PO SCH (20:06)
[2020-11-19 20:30] VITALS: BP 136/52
[2020-11-19] MEDS: AMLODIPINE 5 MG TABLET PO SCH (20:34)
--- NOTE | 2020-11-20 05:48 | NUR ---
Received Pt sleeping in sammy chair, but easily arousable, A+Ox2. IV present to (L) AC infusing NS @ 125ml/hr. Pt c/o no BM "for several months, as long as I have been here". Pt was unable to state the date but knew the year. Pt was reminded she has been at this hospital 11 days. Pt given MOM for constipation, awaiting effect. Pt has poor insight and states she was admitted for "bowel obstruction." Presents with low mood and flat affect. Denies SI/HI/AH/VH and verbally contracts for safety. Denies pain, VS stable. IV infused 700ml NS, infusion complete. IV d/c'd hep lock in place. No redness or infiltration noted at site.
[2020-11-20] MEDS: PANTOPRAZOLE SODIUM 40 MG TABLET.DR PO SCH (06:08)
[2020-11-20] MEDS: LEVOTHYROXINE SODIUM 88 MCG TABLET PO SCH (06:08)
[2020-11-20 07:05] LABS: BASOPHILS # (AUTO) 0.1 K/uL (0.0-8.0); BASOPHILS % (AUTO) 1.1 % (0.0-2.0); EOSINOPHILS # (AUTO) 0.2 K/uL (0.0-0.7); HEMOGLOBIN 12.7 g/dL (10.9-14.3); LYMPHOCYTES # (AUTO) 2.6 K/uL (20.0-40.0); LYMPHOCYTES % (AUTO) 26.8 % (20.5-51.5); MEAN CORPUSCULAR HEMOGLOBIN 31.8 uug (24.7-32.8); MEAN CORPUSCULAR HGB CONC 34 g/dL (32.3-35.6); MONOCYTES # (AUTO) 0.9 K/uL (2.0-10.0); MONOCYTES % (AUTO) 9.2 % (0.0-11.0); NEUTROPHILS # (AUTO) 5.9 K/uL (1.8-8.9); NEUTROPHILS % (AUTO) 60.9 % (38.5-71.5); PLATELET COUNT (AUTO) 349 K/uL (179-408); RED BLOOD CELL COUNT(AUTO) 3.98 MIL/uL (3.63-4.92); WHITE BLOOD COUNT (AUTO) 9.7 K/uL (3.8-11.8)
[2020-11-20 07:12] LABS: CREATININE 0.7 mg/dL (0.6-1.3); MAGNESIUM 2.1 mg/dL (1.8-2.4); PHOSPHOROUS 2.6 mg/dL (2.5-4.9); POTASSIUM 3.9 mmol/L (3.5-5.1)
[2020-11-20 08:00] VITALS: BP 148/67
[2020-11-20] MEDS: CHOLECALCIFEROL 1,000 UNIT TABLET PO SCH (08:21)
[2020-11-20] MEDS: ASPIRIN 81 MG TAB.CHEW PO SCH (08:22)
[2020-11-20] MEDS: CALCIUM CARB/VITAMIN D 600-400 MG TABLET PO SCH ×2 (08:22→17:18)
[2020-11-20] MEDS: SOTALOL HCL 80 MG TABLET PO SCH ×2 (08:22→20:14)
[2020-11-20] MEDS: DOCUSATE SODIUM 100 MG CAPSULE PO SCH ×2 (08:23→20:17)
[2020-11-20] MEDS: MEMANTINE HCL 5 MG TABLET PO SCH ×2 (08:23→20:11)
[2020-11-20] MEDS: MULTIVITAMINS,THERAPEUTIC TABLET PO SCH (08:23)
[2020-11-20] MEDS: HYDROCHLOROTHIAZIDE 25 MG TABLET PO SCH (08:23)
[2020-11-20] MEDS: OXCARBAZEPINE 300 MG TABLET PO SCH ×3 (08:23→20:12)
[2020-11-20] MEDS: hydrALAZINE HCL 50 MG TABLET PO SCH ×4 (08:23→20:13)
[2020-11-20] MEDS: LOSARTAN POTASSIUM 50 MG TABLET PO SCH (08:25)
[2020-11-20 16:00] VITALS: BP 137/59
--- NOTE | 2020-11-20 18:16 | NUR ---
patient up to sammy-chair with assisted to all ADLS, compliant with all medication, iv site removed Na up to 132 .will continue close monitoring.
[2020-11-20 20:00] VITALS: BP 148/59
[2020-11-20] MEDS: MAGNESIUM HYDROXIDE 30 ML LIQUID UDC PO PRN (20:11)
[2020-11-20] MEDS: ATORVASTATIN 10 MG TABLET PO SCH (20:12)
[2020-11-20] MEDS: LORAZEPAM 0.5 MG TABLET PO PRN (20:12)
[2020-11-20] MEDS: AMLODIPINE 5 MG TABLET PO SCH (20:13)
[2020-11-20] MEDS: OLANZAPINE 5 MG TABLET PO SCH (20:13)
[2020-11-20] MEDS: OXYBUTYNIN XL 5 MG TABSR PO SCH (20:17)
--- NOTE | 2020-11-21 05:00 | NUR ---
Pt hep lock d/c'd from (L) AC. Pt appears depressed and sad. Pt reported she is depressed due to her multiple health problems, and she stated she had not had a BM "in 2 months." Pt was reminded she had had at least 3 BMs since admission, but she adamantly denies this. Abdomen was assessed, no rigidity present, and bowel sounds were present. MOM prn administered along with scheduled HS Colace. No BM up to this point in the shift. Pt is isolative and withdrawn, and encouraged to engage with the milieu, emotional support provided. Ativan 1mg administered at 2011 with good effect. ADLs attended to, no aggressive or combative behaviors. Denied pain, VS stable.
[2020-11-21] MEDS: PANTOPRAZOLE SODIUM 40 MG TABLET.DR PO SCH (06:13)
[2020-11-21] MEDS: LEVOTHYROXINE SODIUM 88 MCG TABLET PO SCH (06:14)
--- NOTE | 2020-11-21 06:49 | NUR ---
Shower given this morning, skin care provided, all ADLs attended to. Slept 9 hours.
[2020-11-21 07:30] VITALS: BP 139/60
--- NOTE | 2020-11-21 07:30 | NUR ---
Received report from HOLLIS Harrison. All questions, comments, and concerns. Received patient resting quietly, alert and oriented sitting in chair.
--- NOTE | 2020-11-21 08:33 | NUR ---
Discharge Note: Patient will be discharged to [facility], [facility] [address] [place] [address] ([phone]) via ambulance. Patient will be transported by ambulance at 12pm. Spoke with Dasha broadcast traffic coordinator at the facility who states they are ready to accept the patient today. Patient will follow-up at the facility with Dr. Patel Manager Talent Acquisition and Dr. Haskins Psychiatrist. Patient is alert and oriented times 3, denies suicidal or homicidal ideation, and is aware and agreeable with discharge plans. Patient presents with euthymic mood and congruent affect. Patient is unable to plan for self-care at this time, however, is willing to accept care provided at the facility. Patients , Michael ([phone]) is aware and agreeable with discharge plan.
--- NOTE | 2020-11-21 08:38 | NUR ---
FAWN Family Contact: FAWN called and left a voicemail for patients , Michael ([phone]) and informed of the discharge set today to [facility].
--- NOTE | 2020-11-21 08:59 | NUR ---
FAWN Family Contact: FAWN spoke with patients , Michael ([phone]) and informed of the discharge set today to [facility]. Michael is agreeable with discharge plan.
[2020-11-21] MEDS: CALCIUM CARB/VITAMIN D 600-400 MG TABLET PO SCH (09:38)
[2020-11-21] MEDS: CHOLECALCIFEROL 1,000 UNIT TABLET PO SCH (09:41)
[2020-11-21] MEDS: ASPIRIN 81 MG TAB.CHEW PO SCH (09:41)
[2020-11-21] MEDS: HYDROCHLOROTHIAZIDE 25 MG TABLET PO SCH (09:42)
[2020-11-21] MEDS: SOTALOL HCL 80 MG TABLET PO SCH (09:42)
[2020-11-21] MEDS: MEMANTINE HCL 5 MG TABLET PO SCH (09:42)
[2020-11-21] MEDS: OXCARBAZEPINE 300 MG TABLET PO SCH ×2 (09:42→12:31)
[2020-11-21] MEDS: MULTIVITAMINS,THERAPEUTIC TABLET PO SCH (09:42)
[2020-11-21] MEDS: LOSARTAN POTASSIUM 50 MG TABLET PO SCH (09:43)
[2020-11-21] MEDS: hydrALAZINE HCL 50 MG TABLET PO SCH ×2 (09:43→12:34)
[2020-11-21] MEDS: DOCUSATE SODIUM 100 MG CAPSULE PO SCH (09:43)
--- NOTE | 2020-11-21 11:08 | NUR ---
patient is alert and oriented. she is cooperative and redirectable. patient denies SI/HI, denies AH/VH. patient is adherent with medication, no adverse reaction noted. patient requires assistance with ambulation and transfer. able to tolerate food and fluids. patient provided with education about impulse control and to communicate needs to staff appropriately. patient encouraged to participate in the unit therapeutic milieu.
[2020-11-21 12:34] VITALS: BP 144/57
--- NOTE | 2020-11-21 13:37 | NUR ---
DISCHARGE NOTE: Patient discharged to [facility] by non-emergency ambulance transportation. Patient provided with education about discharge instructions, treatment plan and medications, and follow up care with psychiatrist and laborer chicken farm. Patient is able to verbalize understanding of discharge education. This video games storywriter spoke with patient's , Michael Gongora, and he is aware of her discharge plan and agreeable. Report given to RN at [facility]. Patient denies suicidal and homicidal ideation. She is alert and oriented in reality.
== END 2020-11-21 13:45 | DRG 885 ==
LOC: ER 21:30 → GPS 23:46 → GPSOV3 11-16 20:25 → GPS 11-18 16:08
PROVIDERS: ADMIT Psychiatry & Neurology Psychosomatic Medicine; ATTEND Nurse Practitioner Family
DX: F25.0 Schizoaffective disorder, bipolar type (principal); F01.50 Vascular dementia, unspecified severity, without behavioral disturbance, psychotic disturbance, mood disturbance, and anxiety; N17.0 Acute kidney failure with tubular necrosis; E87.1 Hypo-osmolality and hyponatremia; E44.1 Mild protein-calorie malnutrition; I69.351 Hemiplegia and hemiparesis following cerebral infarction affecting right dominant side; Z20.822 Contact with and (suspected) exposure to COVID-19; E78.5 Hyperlipidemia, unspecified; E03.9 Hypothyroidism, unspecified; Z90.710 Acquired absence of both cervix and uterus; D64.9 Anemia, unspecified; E86.1 Hypovolemia; E87.6 Hypokalemia; G47.00 Insomnia, unspecified; K59.00 Constipation, unspecified; I10 Essential (primary) hypertension; F32.9 Major depressive disorder, single episode, unspecified; E88.09 Other disorders of plasma-protein metabolism, not elsewhere classified; I69.320 Aphasia following cerebral infarction; F41.9 Anxiety disorder, unspecified; Z68.29 Body mass index [BMI] 29.0-29.9, adult
CPT/HCPCS: 36415; 83735; 84100; 84443; 85025; 93005; A4663; G0480; J7030